=== PATIENT | female | born 1950 | race Caucasian/White ===

== ENCOUNTER 2017-09-16 14:25 | Outpatient (CLI) | payer MEDICARE ==
--- NOTE | 2017-09-16 15:47 | RAD ---
LUMBAR SPINE FIVE VIEWS: 09/16/17 HISTORY: Low back pain. COMPARISON: 07/23/16. FINDINGS: Right pedicle screws and vertical ginna at the lumbosacral junction and metallic markers associated wit h interbody fusion material are unchanged in position. Other pedicles are intact. Rightward convexed rotatory scoliotic curvature is similar in appearance to the previous study. Lucency around the pedic le screws is again demonstrated. Around the more superior screw, lucency has increased to 0.7 cm. Vertebral body heights are maintained. No abnormal translational motion upon flexion or extension, al though there is limited range of movement. Calcification over the arterial structures. IMPRESSION: Interval increase in lucency surrounding the more superior right pedicle screw. Postoperative and degenerative changes of the lumbar spine are otherwise stable. POS: [facility]
== END 2017-09-16 14:26 | disposition home or self-care (01) ==
LOC: RAD 14:25
PROVIDERS: ATTEND Anesthesiology Pain Medicine
DX: M47.896 Other spondylosis, lumbar region (principal); Z98.1 Arthrodesis status
CPT/HCPCS: 72120

== ENCOUNTER 2019-09-07 13:07 | Outpatient (CLI) | payer MEDICARE ==
--- NOTE | 2019-09-07 14:45 | MRI ---
Exam: Lumbar spine MRI with and without contrast COMPARISON: 07/23/2016 HISTORY: Lumbar stenosis. Lumbar radiculopathy. Previous fusion. FINDINGS: Appropriate T1 marrow signal intensity of the lumbar vertebra. Lumbar spine vertebral body height is maintained. No fracture. There are bilateral transpedicular screws at L3, L4 and L5 with associated metallic susceptibly artifact. Evaluation of the lumbar spine at the level of fusion is limited. Ther e do appear to be at L3-L4 and L4-L5 disc prosthesis. No significant STIR hyperintensity to suggest vertebral body edema or ligamentous injury. Spondylolisthesis: 2.3 mm of retrolisthesis of L2 upon L3 5.5 mm of anterolisthesis of L4 upon L5 Type II Modic changes at the L4-L5 disc space Postcontrast images do not demonstrate any abnormal enhancement within the thecal sac including the c auda equina and conus medullaris. Postsurgical laminectomy defect at L3-L4, L4-L5 is noted Conus medullaris terminates at the mid T12 level T12-L1: Disc desiccation without significant loss of disc space height. No significant central canal stenosis or significant neural foraminal narrowing L1-L2: Disc desiccation without significant loss of disc space height. Minimal broad-based disc bulge . No significant central canal stenosis or significant neural foraminal narrowing L2-L3: Mild loss of disc space height. There is a broad-based disc bulge, ligament flavum thickening and facet hypertrophy. There is inferior and superior disc extrusion. Moderate to severe central canal stenosis. Moderate bilateral neural foraminal narrowing. Posterior disc abnormality and central canal stenosis has developed since the previous examination. Retrolisthesis has also developed since the previous examination, as has the bilateral foraminal narrowing. L3-L4: Disc prosthesis. Posterior decompression. No significant central canal stenosis or significant neural foraminal narrowing. Postcontrast images demonstrate minimal enhancing scar tissue. L4-L5: Disc prosthesis. Posterior laminectomy defect. No significant central canal stenosis. Limited evaluation the right neural foramen due to metallic susceptibly artifact. Patent left neural foramen. Minimal enhancing scar tissue at the laminectomy defect site L5-S1: Adequate disc hydration. No significant central canal stenosis or significant neural foraminal narrowing. IMPRESSION: 1. Interval placement of bilateral transpedicular screws at L3. Interval placement of a prosthesis at L3-L4 disc space. 2. Interval development of grade 1 retrolisthesis of L2 upon L3. Stable grade 1 anterolisthesis of L4 upon L5. 3. Interval central canal stenosis and foraminal narrowing at L2-L3 as detailed above. Transcribed Date/Time: 09/07/2019 2:52 PM
== END 2019-09-07 13:08 | disposition home or self-care (01) ==
LOC: SCSMRI 13:07
PROVIDERS: ATTEND Anesthesiology Pain Medicine
DX: M48.062 Spinal stenosis, lumbar region with neurogenic claudication (principal); M54.16 Radiculopathy, lumbar region; M43.16 Spondylolisthesis, lumbar region; Z98.890 Other specified postprocedural states
CPT/HCPCS: 72158; 82565